=== PATIENT | male | born 2000 | race Two or more races ===

== ENCOUNTER 2018-10-20 19:32 | Emergency (ER) | payer SELFPAY ==
[~2018-10-20] VITALS: Ht 177.8 cm; Wt 77.2 kg
[2018-10-20] MEDS ORDERED: IBUPROFEN 600MG TABLET PO ONE (20:30)
[2018-10-21 01:09] VITALS: BP 140/94
== END 2018-10-21 01:11 | disposition home or self-care (01) ==
LOC: ER 19:32
DX: S16.1XXA Strain of muscle, fascia and tendon at neck level, initial encounter (principal); S09.8XXA Other specified injuries of head, initial encounter; V49.19XA Passenger injured in collision with other motor vehicles in nontraffic accident, initial encounter; Y93.89 Activity, other specified; Y92.89 Other specified places as the place of occurrence of the external cause; Y99.8 Other external cause status
CPT/HCPCS: 99284